=== PATIENT | female | born 1965 | race Caucasian/White ===

== ENCOUNTER 2017-09-15 15:29 | Emergency (ER) | payer SELFPAY ==
[~2017-09-15] VITALS: Ht 157.5 cm; Wt 99.3 kg
[~2017-09-15 15:29] MED LIST: CLAR500T95 PO; DILA100C PO; IBUP400T20 PO; IBUP800T23 PO; KEPP1000 PO
[2017-09-15 15:35] VITALS: BP 133/84; PULSE 92; RESP 18; TEMP 98.6; O2SAT 95
[2017-09-15] MEDS ORDERED: SEIZURE MED (15:45)
[2017-09-15] MEDS ORDERED: LEVE500 PO (15:45)
[2017-09-15] MEDS ORDERED: DILA100C PO (15:49)
[2017-09-15] MEDS ORDERED: PRED20 PO (16:24)
[2017-09-15] MEDS ORDERED: BENZ100 PO (16:24)
[2017-09-15] MEDS ORDERED: ALBUAER3 INH (16:24)
--- NOTE | 2017-09-15 16:29 | PD ---
HPI Chief Complaint: Cold / Flu Symptoms Time Seen by Provider: 16:07 Travel History International Travel<30 days: No Contact w/Intl Traveler<30days: No Traveled to known affect area: No History of Present Illness HPI 52-year-old female here with cough, congestion, sore throat times one day. Symptom severity is moderate. No aggravating or alleviating factors. No fever or chills. No foreign travel. PFSH Past Medical History Autoimmune Disease: Yes Blood Disorders: No Cancer: No Cardiovascular Problems: No Cerebrovascular Accident: No Diminished Hearing: No Endocrine: No Gastrointestinal Disorders: No Glaucoma: No Genitourinary: No Headaches: Yes Hypertension: Yes Immune Disorder: Yes Musculoskeletal: No Neurologic: Yes Psychiatric: No Respiratory: No Immunizations Current: Yes Seizures: Yes ?: Not LMP: CARLY Menopausal: Yes Tubal Ligation: Yes Past Surgical History Abdominal Surgery: No AICD: No Cardiac Surgery: No Section: Yes Ear Surgery: No Endocrine Surgery: No Eye Surgery: No Genitourinary Surgery: No Gynecologic Surgery: Yes Joint Replacement: No Neurologic Surgery: No Oral Surgery: No Pacemaker: No Thoracic Surgery: No Other Surgery: Yes Social History Alcohol Use: No Tobacco Use: No Substance Use: No Allergies-Medications (Allergen,Severity, Reaction): Coded Allergies: penicillin G (Unverified Allergy, Severe, SWELLING/ITCHY, 09/15/17) cephalexin (Verified Adverse Reaction, Intermediate, NIGHTMARES, 09/15/17) Reported Meds & Prescriptions Reported Meds & Active Scripts Active Reported Dilantin (Phenytoin Extended) 100 Mg Cap 200 Mg PO HS Keppra (Levetiracetam) 500 Mg Tab 1,000 Mg PO BID Review of Systems Except as stated in HPI: all other systems reviewed are Neg General / Constitutional: No: Fever HENT: Positive: Sore Throat, Rhinitis, Congestion Cardiovascular: No: Chest Pain or Discomfort Respiratory: Positive: Cough Gastrointestinal: No: Abdominal Pain Genitourinary: No: Dysuria Physical Exam Narrative GENERAL: Alert female well-appearing. SKIN: Warm and dry. HEAD: Normocephalic. EYES: No scleral icterus. No injection or drainage. NECK: Supple, trachea midline. No JVD or lymphadenopathy. CARDIOVASCULAR: Regular rate and rhythm RESPIRATORY: Breath sounds equal bilaterally. No accessory muscle use. GASTROINTESTINAL: Abdomen soft, non-tender, nondistended. MUSCULOSKELETAL: No cyanosis, or edema. BACK: Nontender without obvious deformity. No CVA tenderness. Data Data Last Documented VS Vital Signs Date Time Temp Pulse Resp B/P (MAP) Pulse Ox O2 Delivery O2 Flow Rate FiO2 09/15/17 15:35 98.6 92 18 133/84 (100) 95 MDM Medical Decision Making Medical Screen Exam Complete: Yes Emergency Medical Condition: Yes Differential Diagnosis URI, influenza, bronchitis Narrative Course 52-year-old female here with URI-like symptoms X 1 day. She is well-appearing. Vital signs are stable. She reports a history of reactive airway requiring albuterol inhalers in the past with URIs. Symptomatic treatment discussed with patient. Diagnosis Primary Impression: Viral upper respiratory illness Referrals: Primary Care Physician Scripts Benzonatate (Tessalon Perles) 100 Mg Cap 200 MG PO TID Y for COUGH for 3 Days, CAP 0 Refills Prov: Alyssa Virk 09/15/17 Albuterol 8.5 GM Inh (Proair Hfa 8.5 GM Inh) 90 Mcg/Act Aer 2 PUFF INH Q4-6H Y for SHORTNESS OF BREATH, #1 INHALER 0 Refills 108 mcg/actuation Prov: Alyssa Virk 09/15/17 Prednisone (Prednisone) 20 Mg Tab 40 MG PO DAILY, #8 TAB 0 Refills Take 40 mg (2 tablets) daily for 5 days Prov: Alyssa Virk 09/15/17 Disposition: 01 DISCHARGE HOME Condition: Stable Alyssa Virk Sep 15, 2017 16:29
== END 2017-09-15 16:43 | disposition home or self-care (01) ==
LOC: PHEFT 15:29
DX: J06.9 Acute upper respiratory infection, unspecified (principal); D89.89 Other specified disorders involving the immune mechanism, not elsewhere classified; I10 Essential (primary) hypertension; R56.9 Unspecified convulsions; Z79.899 Other long term (current) drug therapy; Z88.0 Allergy status to penicillin; Z88.8 Allergy status to other drugs, medicaments and biological substances
CPT/HCPCS: 99284